=== PATIENT | female | born 1935 | race Caucasian/White ===

== ENCOUNTER 2022-05-05 10:28 | Inpatient (IN) ==
--- NOTE | 2022-05-05 12:08 | XRay Report ---
XR wrist LT min 3V routine, XR hand LT min 3V routine CLINICAL HISTORY: Fall TECHNIQUE: 4 views of the left wrist 3 views of left hand were obtained. Comparison: None available at the time of this dictation. FINDINGS: There is a slightly impacted fracture of the radial metaphysis. Degenerative changes are seen most pr ominently in the first carpometacarpal joint and distal interphalangeal joints. Soft tissue swelling is seen about the wrist. IMPRESSION: Placed fracture of the distal radial metaphysis without evidence of intra-articular extension. Degene rative changes compatible with osteoarthritis noted. ACT 112: Negative or not required by law. Electronically signed by: Ralph Bonner M.D. 05/05/2022 12:06 PM
--- NOTE | 2022-05-05 13:03 | CT Scan Report ---
CT SCAN OF THE BRAIN WITHOUT IV CONTRAST CLINICAL HISTORY: Fall. COMPARISON STUDY: CT of the brain dated 11/14/2019. TECHNIQUE: Unenhanced axial CT scan of the brain is performed from the vertex to the skull base. A do se lowering technique was utilized adhering to the principles of ALARA. CT DOSE: 729.78 mGycm FINDINGS: Brain parenchyma: There are several foci of subarachnoid hemorrhage. Subarachnoid hemorrhage is seen along the right posterior temporal sulci on axial high resolution image #54. There is also subarachno id hemorrhage along the right cerebellar hemisphere seen on axial image #45, and within the right yudith drigeminal plate cistern on image #63. There is age-related involutional change noting mild subcortic al and periventricular microangiopathic disease. There is no mass effect or evidence of acute territo rial ischemia by CT criteria. Mitchell-white matter differentiation is preserved. No extra-axial fluid co llection is seen. Ventricles, sulci, cisterns: Prominent secondary to involutional change. Intracranial vasculature: There is atherosclerotic calcification of the cavernous carotid arteries. Calvarium: The skeletal structures are osteopenic. No depressed calvarial fracture is identified. Sinuses and mastoids: A 9 mm retention cyst is noted in the left frontal sinus. The paranasal sinuses are otherwise clear. The mastoid air cells are well pneumatized. Orbits: The bony orbits are grossly intact. There are bilateral ocular lens implants. IMPRESSION: 1. There are small foci of acute subarachnoid hemorrhage as detailed above. 2. There is no mass effect or evidence of acute territorial ischemia by CT criteria. ACT 112: Negative or not required by law. Electronically signed by: Raymon Santizo M.D. 05/05/2022 1:02 PM
--- NOTE | 2022-05-05 13:08 | CT Scan Report ---
CT OF THE CERVICAL SPINE WITHOUT CONTRAST CLINICAL HISTORY: Fall. COMPARISON STUDY: Cervical spine CT November 14, 2019. TECHNIQUE: Helical axial images of the cervical spine were obtained without IV contrast. Sagittal a nd coronal reconstructions were viewed. Automated exposure control was utilized for the study. A do se lowering technique was utilized adhering to the principles of ALARA. FINDINGS: Small amount of suspected acute subarachnoid hemorrhage overlying the right cerebellar ani sphere is better depicted on the head CT. Alignment of the cervical spine is anatomic. Vertebral body heights are maintained. No acute cervical spine fracture or subluxation is present. There is no prev ertebral edema. Facet joints are intact. Moderate multilevel degenerative changes within the cervica l spine are present. IMPRESSION: 1. No acute cervical spine fracture or subluxation. 2. Small amount of suspected acute subarachnoid hemorrhage overlying the right cerebellar hemisphere, better depicted on the head CT. ACT 112: Negative or not required by law. Electronically signed by: Rusty Duenas M.D. 05/05/2022 1:07 PM
[2022-05-05 14:33] LABS: Appearance Urine Clear (Clear); Bacteria Urine Automated 1+ (Negative); Bilirubin Urine Negative (Negative); Blood Urine Negative (Negative); Cast Urine Automated 0 /lpf (0-5); Color Urine Yellow; Glucose Urine UA Negative (Negative); Ketones Urine Negative (Negative); Leukocyte Esterase Urine 1+ (Negative); Nitrite Urine Negative (Negative); Protein Urine Negative (Negative); RBC Urine Automated 0-4 /hpf (0-4); Specific Gravity Urine 1.006 (1.000-1.030); Urobilinogen Urine Negative (Negative); pH Urine 7.5 (4.5-7.5)
--- NOTE | 2022-05-05 15:28 | History & Physical Report ---
Date of Service May 05, 2022 Assessment & Plan (1) Recurrent falls: Plan: 87 y/o female with a complicated PMH including progressive primary aphasia, prior CVA, prior SAH, 4th nerve palsy, ASCVD, HTN, dyslipidemia, and hypothyroidism who presented to the ED from [facility] after a fall with resultant wrist pain. Work-up in the ED revealed small foci of acute SAH and distal left radius fracture so pt referred for admission. Discussed with pt/family possible neurosurgical evaluation for the SAH but they prefer to manage conservatively - pt's POLST completed in 2020 with pt's choice being limited interventions with a goal on quality of life and comfort. - Admit to med surg - requested family be able to stay with patient overnight due to her significant aphasia (family able to help pt to communicate her needs) - PT/OT consults - consider higher level of care such as SNF at discharge, even if temporary. Pt has been resistant to this previously - Fall precautions (2) Subarachnoid hemorrhage: Plan: Pt/family prefer to manage conservatively - repeat CT head in AM to document stability (3) Distal radius fracture, left: Plan: - Consult orthopedics for recommendations on management (4) Primary progressive aphasia: (5) ASCVD (arteriosclerotic cardiovascular disease): (6) Hypothyroid: (7) Dyslipidemia: (8) Essential hypertension: Plan I had an extensive conversation with the patient and her two daughters at the bedside regarding plan of care and goals moving forward. They agree that overall pt's condition has been worsening but also note that pt has refused many of the recommended therapies such as speech therapy, and refuses to use her walker, which has contributed to her frequent falls. They also have some concerns about the current care pt is receiving, as it is unclear how quickly they are responding to pt's falls and they have apparently failed to call the family with falls previously (pt notifies them). Will consult case management to assist with discharge planning, help identify potential services that pt would qualify for as outpatient to help her stay safe, promote quality of life. Consult palliative care to assist with goals of care discussion and help identify best discharge plan. Pt has declined speech therapy but will order appropriate diet while admitted, recommend aspiration precautions. Await PT/OT evals to help determine appropriate level of care at discharge. Pt seen and reviewed with attending physician, Dr. Fisher. Plan of care discussed and as outlined above. 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 History obtained from pt, her daughters at the bedside, and extensive review of her outpatient records. Pt has been at [facility] since shortly after her fall in 2020. She is supposed to be using a walker to help with ambulation but daughters report that she often does not use this, which has resulted in multiple falls. She follows with Dr. Lucero Agrawal for neurology, specifically the PPA. Her symptoms have been progressive. Pt also has ongoing issues with dysphagia - she did undergo speech therapy for a time but did not find it helpful so has since refused even with progressive symptoms and possible aspiration seen on imaging. Her daughters think that she is likely aspirating - may have coughing or choking episodes with meals. She does seem to do better with a mechanical soft/all food in bite size pieces type of diet. Appetite is good. Pt did see palliative care in Nov 2020 and MARY completed (copy on chart) - pt requests limited interventions with a focus on quality and comfort. It is unclear how compliant she has been with all of the prescribed medications but she is consistently taking her metoprolol and levothyroxine from what I can tell. Today's fall resulted in pt landing on her left side, specifically left hand. Main complaint of pain is in the left wrist, specifically with movement. Daughters note some abrasions on her left knee and elbow as well. Pt does not recall if she hit her head but does c/o headache when I saw her in the ED. Allergies Allergy/AdvReac Type Severity Reaction Status Date / Time BROWN Inhibitors Allergy Unknown ON [facility] 05/05/22 15:36 SIDNEY MED LIST Home Medications Medication Instructions Recorded Confirmed Type aspirin 81 mg chewable tablet 81 mg PO DAILY 11/14/19 05/05/22 History levothyroxine 88 mcg tablet 88 mcg PO DAILYBB 11/14/19 05/05/22 History acetaminophen 325 mg tablet 650 mg PO Q4H PRN PAIN/FEVER >100. 05/05/22 05/05/22 History (Tylenol) melatonin 3 mg tablet 3 mg PO HS PRN Insomnia 05/05/22 05/05/22 History metoprolol succinate 25 mg 37.5 mg PO BID 05/05/22 05/05/22 History tablet,extended release 24 hr pediatric multivitamin no.42 1 tab PO DAILY 05/05/22 05/05/22 History (Children's Multivitamin chewable tablet) propylene glycol 0.6 % eye drops 2 drp ophthalmic (eye) TID 05/05/22 05/05/22 History (Systane Balance) Past Med/Surg History Medical History ASCVD (arteriosclerotic cardiovascular disease) Degenerative cervical disc Dyslipidemia Essential hypertension History of lacunar cerebrovascular accident (CVA) History of ovarian cancer History of renal cell cancer Hypothyroid Paroxysmal atrial tachycardia Primary progressive aphasia Vitamin D deficiency Surgical History Hx of appendectomy Hx of removal of ovary S/P partial hysterectomy Family History Other Family history non-contributory Social History (Updated 05/05/22 @ 16:42 by Josefina Johnson PA-C) Smoking Status: Never smoker Preferred Language: Irish Current Living Situation: Personal Care Facility Current Living Situation Comment: [facility] Feels Safe at Home: Yes Review of Systems Review of Systems: Limited due to PPA - please see HPI Physical Exam Constitutional: + frail appearing; no acute distress Eyes: wearing glasses with patch over right eye - when removed, pupils are equal and reactive Neck: trachea midline Respiratory: no respiratory distress and no labored breathing Auscultation: lungs clear to auscultation bilaterally; no rales, no rhonchi and no wheezes Cardiovascular: Rate/Rhythm: regular rate and regular rhythm Vessels: dorsalis pedis pulses present and radial pulses present Extremities: no pedal edema Gastrointestinal (Abdomen): Inspection/Auscultation: normal bowel sounds; abdomen not distended Percussion/Palpation: abdomen soft Musculoskeletal: left wrist with some ecchymosis, extends to hand/fingers, but minimal swelling - 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 but some pain with this movement, pain with supination and flexion Skin: small abrasions left elbow and left knee Neurologic: moves all extremities and awake Speech / Cognition: + expressive aphasia Results & Data Results & Data ([facility]) Vital Signs (Past 12 Hours) Vital Signs Temp Pulse Pulse Resp BP BP Pulse Ox 05/05/22 14:35 73 05/05/22 13:57 78 16 155/89 H 94 05/05/22 13:00 76 24 97 05/05/22 12:30 68 18 05/05/22 12:00 61 18 96 05/05/22 11:30 71 18 05/05/22 11:00 76 21 97 05/05/22 10:39 75 20 97 05/05/22 10:42 74 05/05/22 10:36 36.5 C 77 16 135/90 97 O2 Del Method 05/05/22 14:35 05/05/22 13:57 05/05/22 13:00 Room Air 05/05/22 12:30 05/05/22 12:00 Room Air 05/05/22 11:30 05/05/22 11:00 Room Air 05/05/22 10:39 Room Air 05/05/22 10:42 05/05/22 10:36 Room Air Laboratory Results Laboratory Results - last 24 hr 05/05/22 13:45 Urine Color Yellow Urine Appearance Clear Urine pH 7.5 Ur Specific Batson 1.006 Urine Protein Negative Urine Glucose (UA) Negative Urine Ketones Negative Urine Blood Negative Urine Nitrite Negative Urine Bilirubin Negative Urine Urobilinogen Negative Ur Leukocyte Esterase 1+ H Urine WBC (Auto) 5-10 H Urine RBC (Auto) 0-4 U Hyaline Cast (Auto) 0 U Epithel Cells (Auto) 10-20 H Urine Bacteria (Auto) 1+ H Diagnostic Findings Left Wrist/Left Hand X-ray 05/05/22 - IMPRESSION: Placed fracture of the distal radial metaphysis without evidence of intra-articular extension. Degenerative changes compatible with osteoarthritis noted. CT Head 05/05/22 - IMPRESSION: 1. There are small foci of acute subarachnoid hemorrhage as detailed above. 2. There is no mass effect or evidence of acute territorial ischemia by CT criteria. CT Cervical Spine 05/05/22 - IMPRESSION: 1. No acute cervical spine fracture or subluxation. 2. Small amount of suspected acute subarachnoid hemorrhage overlying the right cerebellar hemisphere, better depicted on the head CT. Code Status & VTE Plan VTE Prophylaxis Plan VTE Prophylaxis will be ordered: Yes Supervising Physician Co-Signing Physician Notes 87-year-old lady with progressive primary aphasia, recurrent falls, CVA, SAH, dysphagia and multiple neurological problems was presented 05/05 to ED from [facility] after fall. Patient's daughter is at bedside. Patient is oriented and alert has slow/garbled speech. Patient reports pain under control at her left wrist site where fracture is noted in imaging. Patient has some bruises on the left confucianist region/left shoulder/left knee. Pelvic compression negative for tenderness. Patient and patient's daughter confirms that patient does not want any invasive intervention. CT head reveals small foci of acute subarachnoid hemorrhage. Other imagings reviewed. Orthopedic consult, pain management, palliative consult. Pt reports pain under control. On examination: GENERAL: Alert and oriented x3. NAD, on RA. slow garbled speech HEENT: No pallor, no icterus. Pupils equal, round and reactive to light. Oral mucosa moist. NECK: No JVD, no neck masses. HEART: S1 and S2 heard. Regular rate and rhythm. No murmur, no gallop. RESPIRATORY SYSTEM: Normal AP diameter. No accessory muscle use. No wheezing, no crackles. ABDOMEN: Soft, bowel sounds present, nontender, no distention. CENTRAL NERVOUS SYSTEM: No facial droop. aphasia. Obeys simple commands. Moves extremities. EXTREMITIES: No edema, no erythema seen. Left wrist tender/swollen. Fall exam: -ve pelvic compression test, bruise noted left confucianist/left shoulder/left knee. Left wrist swollen/tender rom. I have seen and examined the patient and have discussed the case with the provider above. I agree with the assessment and plan as stated.
--- NOTE | 2022-05-05 17:10 | Electrocardiogram Report ---
Test Reason : Blood Pressure : / mmHG Vent. Rate : 069 BPM Atrial Rate : 069 BPM P-R Int : 172 ms QRS Dur : 082 ms QT Int : 410 ms P-R-T Axes : 082 -08 049 degrees QTc Int : 439 ms Poor data quality, interpretation may be adversely affected Sinus rhythm with frequent Premature ventricular complexes and Premature atrial complexes Fusion beats Borderline ECG When compared with ECG of 02-MAY-2010 00:43, Premature ventricular complexes are now Present Premature atrial complexes are now Present ST now depressed in Inferior leads Confirmed by Emile Salamanca ([id number]) on 05/05/2022 5:10:27 PM Referred By: [facility] Confirmed By:Arturo Salamanca
[2022-05-05] MEDS: METOPROLOL SUCC 25MG EXT REL TAB PO SCH (21:45)
[2022-05-06] MEDS: ACETAMINOPHEN 325 MG TAB PO PRN ×3 (01:08→16:30)
[2022-05-06] MEDS: LEVOTHYROXINE SODIUM 88 MCG TABLET PO SCH (06:29)
--- NOTE | 2022-05-06 06:43 | Emergency Department Note ---
Impression & Plan Subarachnoid hemorrhage, Recurrent falls, Distal radius fracture, left ED Provider Note CHIEF COMPLAINT: fall HISTORY OF PRESENT ILLNESS: This 87 yo female patient presents to the emergency department with c/o an unwitnessed fall last night. Pt told her daughter she was feeling dizzy when the event occurred. 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 Patient's daughter states she received a call from the patient stating that she needed an ambulance. Patient's daughter drove to the personal care facility where she lives in an independent apartment. Patient was noted to have ice on her left wrist, as she was c/o pain. Patient's daughter states she did not receive a call from the facility staff. REVIEW OF SYSTEMS: A review of systems was performed with positives and pertinent negatives listed in the history of present illness. 10 systems were reviewed and are otherwise negative. ALLERGIES: see below MEDICATIONS: see below PMH: see below SOCIAL HISTORY: see below DDx: Fracture, dislocation, contusion, intra-abdominal, pneumothorax, intrathoracic, intracranial, neurologic, compartment syndrome, rhabdomyolysis, as well as other pathologies. PHYSICAL EXAM: Vital signs reviewed. General: Chronically ill-appearing 87 yo female, in no significant distress. HEENT: No scleral icterus, PERRLA, neck supple. Atraumatic. Cardiovascular: Regular rate and rhythm, no extra sounds. Pulmonary: Clear to auscultation bilaterally, normal work of breathing. Abdomen: Soft, nontender, nondistended, positive bowel sounds. Musculoskeletal: Atraumatic, no peripheral edema. Left wrist with mild swelling and discomfort to palpation, no significant deformity. Bruising noted to the fingers. Moves all extremities equally. Neurologic: Patient awake alert and oriented x 3, significant expressive aphasia with slow and deliberate speech. Cranial nerves II through XII are grossly intact. Skin: Warm, dry, no rash EMERGENCY DEPARTMENT COURSE/MDM: This patient was evaluated and appeared to be in no significant distress. IV access was obtained and laboratory work was drawn. Patient was placed on a house servant and external medical records were reviewed. CT imaging of the head was performed and reveals a small amount of subarachnoid bleeding. Left wrist x-ray reveals an impacted fracture of the distal radius. CT scan of the C-spine is negative for acute fracture as well as the left hand x-ray. I did explain the findings to the patient and family. Patient has mentioned not wanting to live anymore in the past to her family due to her severe aphasia. They do not want any heroic measures/neurosurgery and did not want to be transferred to a tertiary care facility as they have done this several times in the past for similar issues. Patient will require 24-hour head CT to evaluate the progression of the intracranial hemorrhage. Nursing staff was advised to place a splint on the left wrist. Patient's case was discussed with the hospitalist service for further evaluation and management. MONITORING: An order for cardiac monitoring was placed and the patient is noted to be in a sinus rhythm with frequent ectopy at 75 beats per minute. RADIOLOGY: CT scan of the head to my interpretation reveals a small amount of acute blood/subarachnoid at the right temporal lobe, otherwise defer to radiology CT imaging of the C-spine per radiology reveals no evidence of acute fracture. X-ray of the left wrist reveals an impacted fracture of the distal radius without significant angulation. X-ray of the left hand to my interpretation reveals no evidence of acute fracture. EKG: To my interpretation reveals a sinus rhythm with frequent PVC and PAC at [address] segments, QTc of 439. DISPOSITION: Admission Past Med/Surg History Medical History Advanced care planning/counseling discussion ASCVD (arteriosclerotic cardiovascular disease) Degenerative cervical disc Dyslipidemia Essential hypertension History of lacunar cerebrovascular accident (CVA) History of ovarian cancer History of renal cell cancer Hypothyroid Palliative care encounter Paroxysmal atrial tachycardia Primary progressive aphasia Vitamin D deficiency Surgical History Hx of appendectomy Hx of removal of ovary S/P partial hysterectomy Family History Other Family history non-contributory Social History Smoking Status: Former smoker Second Hand Exposure: No; Hx Alcohol Use: Yes Alcohol type: hard liquor Hx Substance Use: No Preferred Language: Croatian Communication Ability: Impaired [place] Machine Operator Required: No Beliefs That Will Affect Care: None Current Living Situation: Personal Care Facility Current Living Situation Comment: [facility] Feels Safe at Home: Yes Assistive Devices: Walker Allergies Allergies Allergy/AdvReac Type Severity Reaction Status Date / Time BROWN Inhibitors Allergy Unknown ON WINDY Verified 05/05/22 15:36 ABELL MED LIST Home Meds Home Medications Medication Instructions Recorded Confirmed aspirin 81 mg chewable tablet 81 mg PO DAILY 11/14/19 05/05/22 levothyroxine 88 mcg tablet 88 mcg PO DAILYBB 11/14/19 05/05/22 acetaminophen 325 mg tablet 650 mg PO Q4H PRN PAIN/FEVER >100. 05/05/22 05/05/22 (Tylenol) melatonin 3 mg tablet 3 mg PO HS PRN Insomnia 05/05/22 05/05/22 metoprolol succinate 25 mg 37.5 mg PO BID 05/05/22 05/05/22 tablet,extended release 24 hr pediatric multivitamin no.42 1 tab PO DAILY 05/05/22 05/05/22 (Children's Multivitamin chewable tablet) propylene glycol 0.6 % eye drops 2 drp ophthalmic (eye) TID 05/05/22 05/05/22 (Systane Balance) Previous Rx's Medication Instructions Recorded cefdinir 300 mg capsule 300 mg PO BID 3 days #6 caps 05/08/22 Results & Data (ED) Vital Signs Vital Signs - 24 hr 05/05/22 10:36 05/05/22 10:42 05/05/22 10:39 Temperature 36.5 C Temperature Source Oral Pulse Rate 77 74 75 Pulse Rate [Apical] Respiratory Rate 16 20 Respiratory Depth Normal Blood Pressure 135/90 Blood Pressure [Left Arm] Blood Pressure Mean 105 Blood Pressure Mean [Left Arm] Blood Pressure Position Lying Pulse Oximetry 97 97 Oxygen Delivery Method Room Air Room Air Sepsis Recent Fever Within 48 Hours No Sepsis New/Unexplained Change in Mental Status No Sepsis Action Taken by Nursing No Action Required 05/05/22 11:00 05/05/22 11:30 05/05/22 12:00 Temperature Temperature Source Pulse Rate 76 71 61 Pulse Rate [Apical] Respiratory Rate 21 18 18 Respiratory Depth Blood Pressure Blood Pressure [Left Arm] Blood Pressure Mean Blood Pressure Mean [Left Arm] Blood Pressure Position Pulse Oximetry 97 96 Oxygen Delivery Method Room Air Room Air Sepsis Recent Fever Within 48 Hours Sepsis New/Unexplained Change in Mental Status Sepsis Action Taken by Nursing 05/05/22 12:30 05/05/22 13:00 05/05/22 13:57 Temperature Temperature Source Pulse Rate 68 76 Pulse Rate [Apical] 78 Respiratory Rate 18 24 16 Respiratory Depth Blood Pressure Blood Pressure [Left Arm] 155/89 H Blood Pressure Mean Blood Pressure Mean [Left Arm] 111 Blood Pressure Position Pulse Oximetry 97 94 Oxygen Delivery Method Room Air Sepsis Recent Fever Within 48 Hours Sepsis New/Unexplained Change in Mental Status Sepsis Action Taken by Nursing 05/05/22 14:35 Temperature Temperature Source Pulse Rate 73 Pulse Rate [Apical] Respiratory Rate Respiratory Depth Blood Pressure Blood Pressure [Left Arm] Blood Pressure Mean Blood Pressure Mean [Left Arm] Blood Pressure Position Pulse Oximetry Oxygen Delivery Method Sepsis Recent Fever Within 48 Hours Sepsis New/Unexplained Change in Mental Status Sepsis Action Taken by [facility] Medications Current Medication List: was personally reviewed by me Laboratory Data Attestation: I reviewed the patient's lab results. 05/07/22 07:44 05/07/22 07:44 Lab Results 05/05/22 Range/Units 13:45 Urine Color Yellow Urine Appearance Clear (Clear) Urine pH 7.5 (4.5-7.5) Ur Specific [place] 1.006 (1.000-1.030) Urine Protein Negative (Negative) Urine Glucose (UA) Negative (Negative) Urine Ketones Negative (Negative) Urine Blood Negative (Negative) Urine Nitrite Negative (Negative) Urine Bilirubin Negative (Negative) Urine Urobilinogen Negative (Negative) Ur Leukocyte Esterase 1+ H (Negative) Urine WBC (Auto) 5-10 H (0-5) /hpf Urine RBC (Auto) 0-4 (0-4) /hpf U Hyaline Cast (Auto) 0 (0-5) /lpf U Epithel Cells (Auto) 10-20 H (0-5) /lpf Urine Bacteria (Auto) 1+ H (Negative) Administered Medications Discontinued Medications Acetaminophen (Acetaminophen 325 Mg Tab) 650 mg PO Q4H PRN PRN Reason: pain/fever Stop: 06/04/22 20:16 Last Admin: 05/08/22 07:23 Dose: 650 mg Documented By: Admin: 05/07/22 11:13 Dose: 650 mg Documented By: Admin: 05/06/22 16:30 Dose: 650 mg Documented By: Admin: 05/06/22 11:48 Dose: 650 mg Documented By: Admin: 05/06/22 01:08 Dose: 650 mg Documented By: LANDY Ceftriaxone Sodium 1,000 mg/ (Dextrose) 50 mls @ 100 mls/hr IV Q24H [facility]; Protocol Stop: 05/16/22 12:44 Last Infusion: 05/08/22 12:07 Dose: 0 mls/hr Documented By: Admin: 05/08/22 11:37 Dose: 100 mls/hr Documented By: Infusion: 05/07/22 14:00 Dose: 0 mls/hr Documented By: Admin: 05/07/22 13:30 Dose: 100 mls/hr Documented By: Infusion: 05/06/22 14:59 Dose: 0 mls/hr Documented By: Admin: 05/06/22 14:29 Dose: 100 mls/hr Documented By: LINO Levothyroxine Sodium (Levothyroxine Sodium 88 Mcg Tablet) 88 mcg PO DAILYBB [facility] Stop: 06/05/22 06:29 Last Admin: 05/08/22 05:57 Dose: 88 mcg Documented By: Admin: 05/07/22 06:31 Dose: 88 mcg Documented By: Admin: 05/06/22 06:29 Dose: 88 mcg Documented By: ELOY Melatonin (Melatonin 3 Mg Tab) 3 mg PO HS PRN PRN Reason: Sleep Stop: 06/05/22 19:27 Last Admin: 05/06/22 20:04 Dose: 3 mg Documented By: ELOY Metoprolol Succinate (Metoprolol Succ 25mg Ext Rel Tab) 37.5 mg PO BID [facility] Stop: 06/04/22 20:59 Last Admin: 05/08/22 08:34 Dose: 37.5 mg Documented By: Admin: 05/07/22 21:37 Dose: 37.5 mg Documented By: Admin: 05/07/22 08:27 Dose: 37.5 mg Documented By: Admin: 05/06/22 20:05 Dose: 37.5 mg Documented By: Admin: 05/06/22 08:52 Dose: 37.5 mg Documented By: Admin: 05/05/22 21:45 Dose: 37.5 mg Documented By: ELOY Miscellaneous (Order Awaiting Action: (Propylene Glycol [Systane Balance] 0.6 % Drops)) 1 each N/A QS [facility] Stop: 06/05/22 00:00 Last Admin: 05/08/22 07:15 Dose: Not Given Documented By: Admin: 05/08/22 01:03 Dose: Not Given Documented By: Admin: 05/07/22 15:07 Dose: Not Given Documented By: Admin: 05/07/22 07:33 Dose: Not Given Documented By: Admin: 05/06/22 22:37 Dose: Not Given Documented By: Admin: 05/06/22 15:28 Dose: Not Given Documented By: Admin: 05/06/22 08:41 Dose: Not Given Documented By: Admin: 05/06/22 01:32 Dose: Not Given Documented By: SMP Discharge Plan Visit Data Chief Complaint: Fall ED Provider: Reema Samayoa Discharge Problem: Subarachnoid hemorrhage, Recurrent falls, Distal radius fracture, left Patient Disposition: Admitted As Inpatient Discharge Instructions Interventions: ED Discharge Assessment Last Done: 05/05/22 20:03
--- NOTE | 2022-05-06 07:17 | CT Scan Report ---
CT OF THE HEAD WITHOUT CONTRAST CLINICAL HISTORY: f/u [facility] for stability COMPARISON STUDY: Head CT May 05, 2022. CT DOSE: 626.55 mGy.cm TECHNIQUE: Helical axial images of the head were obtained without IV contrast. Automated exposure con trol was utilized for the study. A dose lowering technique was utilized adhering to the principles o f ALARA. FINDINGS: A few foci of trace acute subarachnoid hemorrhage are noted, including foci within the righ t aspect of the quadrigeminal plate cistern and overlying the right cerebellar hemisphere. There is a possible additional focus overlying the right occipital lobe. There has been no significant change s everette prior exam. Ventricular system is normal. Basal cisterns are patent. There are no findings to fuller ggest acute dural sinus thrombosis or acute territorial infarct. There is no acute calvarial fracture . IMPRESSION: No significant change in a few foci of trace acute subarachnoid hemorrhage. ACT 112: Negative or not required by law. Electronically signed by: Rusty Duenas M.D. 05/06/2022 7:15 AM
[2022-05-06] MEDS: METOPROLOL SUCC 25MG EXT REL TAB PO SCH ×2 (08:52→20:05)
--- NOTE | 2022-05-06 09:19 | Palliative Care Consultation ---
Date of Consultation May 06, 2022 Assessment & Plan (1) Palliative care encounter: Met with pt/family. Provided overview of Palliative Medicine, a subspecialty that provides specialized medical care for people living with a serious illness by offering a focus on quality of life. Palliative Medicine is often conflated with hospice: I advised patient/family that Palliative and hospice can be partners but we are not the same. It is important to understand the difference so that we may be informed, and not afraid. Palliative Medicine works to improve QOL through reduction of symptom burden/more control over their illness, for both the patient and family. Palliative medicine clinicians are board certified, specially-trained and another member of the patient's medical care team. We often provide an extra layer of support because our care is based on the needs of the patient, not the prognosis; as such, it's appropriate at any age/advancing stage of a serious illness and can be provided along with curative treatment. Palliative Medicine clinicians are also trained in advanced communication methodologies, to facilitate complex discussions about advanced illness planning, which are needed to help assure that the treatment choices match the patient's goals, aka delivering Goal Concordant care. Finally, we discussed that hospice is a visiting nurse service that focuses on care delivered at the very end of life for patients with terminal illness, with life expectancy less than 6 month. (2) Advanced care planning/counseling discussion: A 60-minute [id number] goals of care and advance care planning discussion was held with patient, her daughters x2 at bedside. We reviewed that all chronic/progressive disease has a declining trajectory over time where facets of patient self-identity and independence are lost. Every acute event leads to a further decline, resulting- many times, in a new baseline. Advised that the greatest priority is to determine what matters most to pt, then family and to develop a plan of care that is aligned with those priorities. Daughters shared patient has increasingly been verbalizing "I want to ." She has steadfastly and consistently refused advanced therapies and interventions. She has declined further speech therapy physical therapy evaluations. They note that with her disease complex, she is beyond the point at which speech therapy would offer any substantial help due to the progression of her medical illness. They note that she has an exceptionally rare and complex illness, primary progressive aphasia. When I questioned patient about her goals and priorities/preferences at this point, she affirmed that she wants more of a focus on quality of life. She wants to return to her facility and would prefer to stay in her assisted living or personal care space versus having to go to the [facility] facility. We discussed the addition of hospice - I have provided education about the hospice benefit. Hospice is an interdisciplinary program offered by nurses, nurses aides, social workers, chaplains and a medical records technician for patients with a terminal condition and a life expectancy of less than 6 months. The goal would be to improve the quality of life of the patient in their home setting (home, halfway, inpatient hospice setting) by providing symptoms management, psychosocial and spiritual support. However, they cannot offer 24 hours care and if the family is unable to provide that care, they will have to consider personal care with out of pocket cost vs. halfway placement. Patient and daughters are interested in learning more about the options for hospice at [facility]. I have updated care management/Lyubov. She will follow-up with the family later today. I specifically advised family that sometimes nursing homes may have partnerships with [facility] for they may asked the family to choose the hospice agency they prefer. Daughter shared extensive list of concerns with regards to patient's care and overall management at [facility]. They are frustrated by the lack of adequate staffing. As well as by the fact that they do not adhere to the parameters for communication as requested by family i.e. to notify them when patient has a fall at any time. They state with this most recent event, patient fell at 2 AM and they were not notified. Patient then called her daughter at 7 AM and said "fall, hurt, ambulance." Daughter then called the nursing desk to request assistance for her mother and was told by the nurse on duty that she had just arrived and got report and would need to go see patient before any updates. She would then subsequently was sent to the hospital but family was not notified until after the fact nor were they called on the initial assessment was done at the bedside. They are also is frustrated by what they know to be limitations and caregiver staff at the halfway level. They note that patient had been living at her daughter's house for some time but her care needs became more complex and daughter could no longer manage her. They did seek assistance from the area agency who were able to approve patient for nearly 24 hours of care however, they were unable to obtain the necessary caregivers due [place] pandemic related [place]. Family expresses several frustrations over the lack of adequate resources and where they feel there are gaps in care that have led to a lesser than ideal quality of care delivery. I provided empathy and reassurance for all of them and encouraged him to continue to remain the strong advocate to engage in his mother's care as they are at this moment. Family and patient would like to return to [facility] with the addition of hospice. They are unsure if she were able to return to her personal alf versus required the [facility] unit, care management has been notified, and will further update the family once they know more information. Family tells me that they were advised patient will be discharged today after her orthopedic brace is applied. I advised them I am unsure of the timing of discharge but that I would not be surprised if possibly this was held till tomorrow while we make arrangements to discharge her back with hospice. I provided my contact information to the family in case additional information is needed with regards to a hospice plan of care. (3) Primary progressive aphasia: (4) Distal radius fracture, left: (5) Subarachnoid hemorrhage: (6) Recurrent falls: (7) ASCVD (arteriosclerotic cardiovascular disease): Plan An extensive family meeting and goals of care discussion was held to identify and clarify the patient's wishes for advance care. They would like a discharge back to the facility with the addition of hospice. Care management has been notified to assist with this process. Timing of discharge to be determined. They do not want to return to the hospital. They understand that the focus will shift to be more about quality and comfort at this junction. Patient has expressed a desire and consistent wish to stop coming back to the hospital pursuing aggressive interventions. She has consistently and steadfastly declined offers and interventions in the past for things such as physical therapy, rehab, speech etc. They do not want to restrict her diet further. They want her to eat and drink as she tolerates for enjoyment and for pleasure. They understand that there is no indication to do further labs, testing, imaging etc. as the focus is shifting to be more about her comfort and quality of life. I have updated nursing, primary team and care management. Palliative medicine was consulted to assist with clarifying the goals of care. This has been done and documented above. At this time we will sign off but remain available for reengagement of reassessment if necessary. I provided the family with my contact information should additional questions or concerns arise. Thank you for this consult. Katey Wallace DNP Clinical Director, Palliative Medicine History of Present Illness Reason for Consultation: On 05/05/22 @ 20:17 Josefina Johnson Wrote To Ana Lemus falls, progressive decline, SAH - goals of care Attending Physician: Suresh Fisher MD History of Present Illness presented to the ED from [facility] after a fall with resultant wrist pain. Work-up in the ED revealed small foci of acute SAH and distal left radius fracture so pt referred for admission. Discussed with pt/family possible neurosurgical evaluation for the SAH but they prefer to manage conservatively - pt's POLST completed in 2020 with pt's choice being limited interventions with a goal on quality of life and comfort. Her 2 daughters are actively involved in her care and would like more discussions re GOC and options to improve symptom mgt. Per chart review: "Pt also has ongoing issues with dysphagia - she did undergo speech therapy for a time but did not find it helpful so has since refused even with progressive symptoms and possible aspiration seen on imaging. Her daughters think that she is likely aspirating - may have coughing or choking episodes with meals. She does seem to do better with a mechanical soft/all food in bite size pieces type of diet. Appetite is good. 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 Allergies Allergy/AdvReac Type Severity Reaction Status Date / Time BROWN Inhibitors Allergy Unknown ON [facility] 05/05/22 15:36 [place] MED LIST Home Medications Medication Instructions Recorded Confirmed Type aspirin 81 mg chewable tablet 81 mg PO DAILY 11/14/19 05/05/22 History levothyroxine 88 mcg tablet 88 mcg PO DAILYBB 11/14/19 05/05/22 History acetaminophen 325 mg tablet 650 mg PO Q4H PRN PAIN/FEVER >100. 05/05/22 05/05/22 History (Tylenol) melatonin 3 mg tablet 3 mg PO HS PRN Insomnia 05/05/22 05/05/22 History metoprolol succinate 25 mg 37.5 mg PO BID 05/05/22 05/05/22 History tablet,extended release 24 hr pediatric multivitamin no.42 1 tab PO DAILY 05/05/22 05/05/22 History (Children's Multivitamin chewable tablet) propylene glycol 0.6 % eye drops 2 drp ophthalmic (eye) TID 05/05/22 05/05/22 History (Systane Balance) Patient History Medical History (Updated 05/06/22 @ 09:22 by Katey Wallace DNP) Advanced care planning/counseling discussion ASCVD (arteriosclerotic cardiovascular disease) Degenerative cervical disc Dyslipidemia Essential hypertension History of lacunar cerebrovascular accident (CVA) History of ovarian cancer History of renal cell cancer Hypothyroid Palliative care encounter Paroxysmal atrial tachycardia Primary progressive aphasia Vitamin D deficiency Surgical History Hx of appendectomy Hx of removal of ovary S/P partial hysterectomy Family History Other Family history non-contributory Social History Smoking Status: Former smoker Second Hand Exposure: No; Do You Dip or Chew Tobacco: No; Tobacco Cessation Education Requested by Patient: No Hx Alcohol Use: Yes Alcohol type: hard liquor Hx Substance Use: No Preferred Language: Latvian Communication Ability: Impaired Electrical High Tension Tester Required: No Beliefs That Will Affect Care: None Current Living Situation: Personal Care Facility [facility] Other Information That Helps Us Care for You: No Feels Safe at Home: Yes Safety Concerns: Feels Safe At This Time Assistive Devices: Walker Review of Systems Review of Systems: All systems reviewed & are unremarkable except as noted in HPI & below, All systems reviewed & are unremarkable except as noted in Subjective and Other (progressive aphasia, pt daughters provided hx as noted in HPI) Physical Exam Constitutional: Chronically ill-appearing Eyes: + irregular pupils ENMT: + Dysarthria, fair dentition, mucosa moist. Neck: Supple, no stridor, no thyromegaly Respiratory: Lateral faint rhonchi, no wheeze, no basilar crackles. Normal effort. No use of accessory muscles. Cardiovascular: RRR, no murmur, no edema Gastrointestinal (Abdomen): Softly distended, bowel sounds positive throughout, nontender to palpation. Musculoskeletal: Generalized weakness, arthritic changes to upper and lower extremities, left wrist and hand with bruising noted. Skin: Pale, warm to touch. Neurologic: Patient is alert to self. She will answer simple questions appropriately most of the time. At times she is distracted or will fall asleep easily. Her speech is severely dysarthric. She has some word location issues. Her daughters are present and assist with translating what she is saying. Results & Data ([facility]) Vital Signs (Past 12 Hours) Vital Signs Temp Pulse Resp BP Pulse Ox O2 Del Method 05/06/22 07:40 36.3 C L 57 L 18 130/76 95 Room Air Laboratory Results Data reviewed Diagnostic Findings Data reviewed PG Care Time/CCT Total # of Minutes Spent Total Time Spent: 120 Total Time Spent with Patient: Total time spent is greater than 50% in coordination of care (as documented) at patient's floor/unit and/or counseling patient: 15 minutes spent in chart review 15 minutes spent in patient assessment 60 additional minutes spent in direct [id number] advance care planning, goals of care discussion with patient and her daughters x2 at the bedside 15 minutes spent reviewing the plan of care, coordination of care, and hospice plan of care trajectory with family and patient 15 minutes spent updating primary team, nursing and case management. Case management will follow-up with the family with regards to disposition planning. A total of 120 minutes was spent on this complex case today. Prolonged Care Time Prolonged Care Time: Yes Advanced Care Planning 46794 Advanced Care Planning 30 Min 57132 Advanced Care Planning Additional 30 Min Coding Level of Care Code New Pt INP/OBS CONSULT LVL 5, 80 MIN Patient Type New History Comprehensive Exam Comprehensive Medical Decision Making High Complexity Diagnoses Palliative care encounter Z51.5 Advanced care planning/counseling discussion Z71.89 Primary progressive aphasia G31.01; F02.80 Distal radius fracture, left S52.502A Subarachnoid hemorrhage I60.9 Recurrent falls R29.6 ASCVD (arteriosclerotic cardiovascular disease) I25.10 Additional Codes Prolonged Care Time - Prolonged Care Time: Yes ([id number]) Advanced Care Planning - 53555 Advanced Care Planning 30 Min: 18092 Advanced Care Planning 30 Min ([id number]) Advanced Care Planning - 81623 Advanced Care Planning Additional 30 Min: 29007 Advanced Care Planning Additional 30 Min ([id number])
--- NOTE | 2022-05-06 09:33 | Orthopedic Consultation ---
Date of Consultation May 06, 2022 Assessment & Plan (1) Distal radius fracture, left: Discussed findings with the patient and daughter and recommended conservative treatment with either cast, eXos fracture brace or cock-up wrist splint and they elected a cock-up wrist splint. Continue RICE. Will also obtain a platform for her walker on the left so she can be weight bearing through the forearm. PT/OT. Follow-up in the office in 2 weeks for x-rays left wrist. As for the left knee explained the is stable and has good ROM with effusion and she can be WBAT. Thank you for the allowing me to participate in Martine Mcarthur's care. Present on Admission?: Yes History of Present Illness Reason for Consultation: Left Wrist fracture Requesting Physician: Danilo Cedillo MD Attending Physician: Suresh Fisher MD History of Present Illness Patient is a pleasant 87-year-old female with multiple medical problems including: progressive primary aphasia, recurrent falls, CVA, SAH, dysphagia and multiple neurological problems presented 05/[address] [facility] after an unwitnessed fall and was admitted yesterday to hospitalist service. Patient's daughter is at bedside. Patient is complaining of left wrist pain. Daughter notes she has bruising left knee, but was able to walk to bathroom with walker but the splint made it difficult. Allergies Allergy/AdvReac Type Severity Reaction Status Date / Time BROWN Inhibitors Allergy Unknown ON [facility] 05/05/22 15:36 LONG BOTTOM MED LIST Home Medications Medication Instructions Recorded Confirmed Type aspirin 81 mg chewable tablet 81 mg PO DAILY 11/14/19 05/05/22 History levothyroxine 88 mcg tablet 88 mcg PO DAILYBB 11/14/19 05/05/22 History acetaminophen 325 mg tablet 650 mg PO Q4H PRN PAIN/FEVER >100. 05/05/22 05/05/22 History (Tylenol) melatonin 3 mg tablet 3 mg PO HS PRN Insomnia 05/05/22 05/05/22 History metoprolol succinate 25 mg 37.5 mg PO BID 05/05/22 05/05/22 History tablet,extended release 24 hr pediatric multivitamin no.42 1 tab PO DAILY 05/05/22 05/05/22 History (Children's Multivitamin chewable tablet) propylene glycol 0.6 % eye drops 2 drp ophthalmic (eye) TID 05/05/22 05/05/22 History (Systane Balance) Patient History Medical History ASCVD (arteriosclerotic cardiovascular disease) Degenerative cervical disc Dyslipidemia Essential hypertension History of lacunar cerebrovascular accident (CVA) History of ovarian cancer History of renal cell cancer Hypothyroid Paroxysmal atrial tachycardia Primary progressive aphasia Vitamin D deficiency Surgical History Hx of appendectomy Hx of removal of ovary S/P partial hysterectomy Family History Other Family history non-contributory Social History Smoking Status: Former smoker Second Hand Exposure: No; Do You Dip or Chew Tobacco: No; Tobacco Cessation Education Requested by Patient: No Hx Alcohol Use: Yes Alcohol type: hard liquor Hx Substance Use: No Preferred Language: Malay Communication Ability: Impaired 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 LUE: 2+ radial pulse. Sensation to light touch intact distally. Able to flex and extend digits, has difficulty following instructions. + Bruising of the middle, ring and small fingers w/o tenderness to palpation or step-offs. - Swelling of the wrist. + TTP distal radius and ulna as well as 1st CMC joint; NO ttp anatomic snuff box nor volarly about the scaphoid. Good ROM of the elbow, some radiation of pain with forearm rotation to elbow. LLE: 2+ DP pulse. Sensation to light touch intact distally. Able to flex and extend toes, has difficulty following instructions. + Bruising of lateral to patella. - effusion. ROM knee and hip was good w/o pain. Knee ligament exam was stable. Results & Data ([facility]) Vital Signs (Past 12 Hours) Vital Signs Temp Pulse Resp BP Pulse Ox O2 Del Method 05/06/22 07:40 36.3 C L 57 L 18 130/76 95 Room Air Laboratory Results Laboratory Results Urine Color Yellow 05/05/22 13:45 Urine Appearance Clear (Clear) 05/05/22 13:45 Urine pH 7.5 (4.5-7.5) 05/05/22 13:45 Ur Specific Ava 1.006 (1.000-1.030) 05/05/22 13:45 Urine Protein Negative (Negative) 05/05/22 13:45 Urine Glucose (UA) Negative (Negative) 05/05/22 13:45 Urine Ketones Negative (Negative) 05/05/22 13:45 Urine Blood Negative (Negative) 05/05/22 13:45 Urine Nitrite Negative (Negative) 05/05/22 13:45 Urine Bilirubin Negative (Negative) 05/05/22 13:45 Urine Urobilinogen Negative (Negative) 05/05/22 13:45 Ur Leukocyte Esterase 1+ (Negative) H 05/05/22 13:45 Urine WBC (Auto) 5-10 /hpf (0-5) H 05/05/22 13:45 Urine RBC (Auto) 0-4 /hpf (0-4) 05/05/22 13:45 U Hyaline Cast (Auto) 0 /lpf (0-5) 05/05/22 13:45 U Epithel Cells (Auto) 10-20 /lpf (0-5) H 05/05/22 13:45 Urine Bacteria (Auto) 1+ (Negative) H 05/05/22 13:45 Nasal Screen MRSA (PCR) Negative (Negative) 05/06/22 04:48 SARS-CoV-2, RNA, NAAT NEGATIVE (NEGATIVE) 05/05/22 15:[address] 05/05/22 11:21 CT OF THE CERVICAL SPINE WITHOUT CONTRAST CLINICAL HISTORY: Fall. COMPARISON STUDY: Cervical spine CT November 14, 2019. TECHNIQUE: Helical axial images of the cervical spine were obtained without IV contrast. Sagittal and coronal reconstructions were viewed. Automated exposure control was utilized for the study. A dose lowering technique was utilized adhering to the principles of ALARA. FINDINGS: Small amount of suspected acute subarachnoid hemorrhage overlying the right cerebellar hemisphere is better depicted on the head CT. Alignment of the cervical spine is anatomic. Vertebral body heights are maintained. No acute cervical spine fracture or subluxation is present. There is no prevertebral edema. Facet joints are intact. Moderate multilevel degenerative changes within the cervical spine are present. IMPRESSION: 1. No acute cervical spine fracture or subluxation. 2. Small amount of suspected acute subarachnoid hemorrhage overlying the right cerebellar hemisphere, better depicted on the head CT. ACT 112: Negative or not required by law. Electronically signed by: Rusty Duenas M.D. 05/05/2022 1:07 PM Hand X-Ray 05/05/22 11:21 XR wrist LT min 3V routine, XR hand LT min 3V routine CLINICAL HISTORY: Fall TECHNIQUE: 4 views of the left wrist 3 views of left hand were obtained. Comparison: None available at the time of this dictation. FINDINGS: There is a slightly impacted fracture of the radial metaphysis. Degenerative changes are seen most prominently in the first carpometacarpal joint and distal interphalangeal joints. Soft tissue swelling is seen about the wrist. IMPRESSION: Non-displaced fracture of the distal radial metaphysis without evidence of intra-articular extension. Degenerative changes compatible with osteoarthritis noted. ACT 112: Negative or not required by law. Electronically signed by: Ralph Bonner M.D. 05/05/2022 12:06 PM Wrist X-Ray 05/05/22 11:21 XR wrist LT min 3V routine, XR hand LT min 3V routine CLINICAL HISTORY: Fall TECHNIQUE: 4 views of the left wrist 3 views of left hand were obtained. Comparison: None available at the time of this dictation. FINDINGS: There is a slightly impacted fracture of the radial metaphysis. Degenerative changes are seen most prominently in the first carpometacarpal joint and distal interphalangeal joints. Soft tissue swelling is seen about the wrist. IMPRESSION: Placed fracture of the distal radial metaphysis without evidence of intra- articular extension. Degenerative changes compatible with osteoarthritis noted in the first carpometacarpal joint and distal interphalangeal joints. ACT 112: Negative or not required by law. Electronically signed by: Ralph Bonner M.D. 05/05/2022 12:[address] 05/06/22 07:00 CT OF THE HEAD WITHOUT CONTRAST CLINICAL HISTORY: f/u SAH for stability COMPARISON STUDY: Head CT May 05, 2022. CT DOSE: 626.55 mGy.cm TECHNIQUE: Helical axial images of the head were obtained without IV contrast. Automated exposure control was utilized for the study. A dose lowering technique was utilized adhering to the principles of ALARA. FINDINGS: A few foci of trace acute subarachnoid hemorrhage are noted, including foci within the right aspect of the quadrigeminal plate cistern and overlying the right cerebellar hemisphere. There is a possible additional focus overlying the right occipital lobe. There has been no significant change since prior exam. Ventricular system is normal. Basal cisterns are patent. There are no findings to suggest acute dural sinus thrombosis or acute territorial infarct. There is no acute calvarial fracture. IMPRESSION: No significant change in a few foci of trace acute subarachnoid hemorrhage. ACT 112: Negative or not required by law. Electronically signed by: Rusty Duenas M.D. 05/06/2022 7:15 AM
--- NOTE | 2022-05-06 12:47 | Hospitalist Progress Note ---
Date of Service May 06, 2022 Assessment & Plan (1) Recurrent falls: Plan: 87 y/o female with a complicated PMH including progressive primary aphasia, prior CVA, prior SAH, 4th nerve palsy, ASCVD, HTN, dyslipidemia, and hypothyroidism who [facility] with resultant [facility] pain. Work-up in the ED revealed small foci of acute SAH and distal left radius fracture so pt referred for admission. Discussed with pt/family possible neurosurgical evaluation for the SAH but they prefer to manage conservatively - pt's POLST completed in 2020 with pt's choice being limited interventions with a goal on quality of life and comfort. - Admit to med surg - requested family be able to stay with patient overnight due to her significant aphasia (family able to help pt to communicate her needs) - PT/OT consults - consider higher level of care such as SNF at discharge, even if temporary. Pt has been resistant to this previously - Fall precautions, CM to assist w/ DC plan. (2) Subarachnoid hemorrhage: Plan: Pt/family prefer to manage conservatively - repeat CT head in AM is stable. (3) Distal radius fracture, left: Plan: - Ortho evaled, RICE/cock-up wrist splint/ pt ot / Ortho f/u in 2 weeks and left wrist XR. - Pt reports pain under control (4) Primary progressive aphasia: (5) ASCVD (arteriosclerotic cardiovascular disease): (6) Hypothyroid: (7) Dyslipidemia: (8) Essential hypertension: Plan Consulted palliative care to assist with goals of care discussion and help identify best discharge plan. Pt has declined speech therapy but on appropriate diet while admitted, recommend aspiration precautions. Await PT/OT evals to help determine appropriate level of care at discharge. Was noted to be aspirating in hospital-both pt and her dtr declined speech eval. Acute UTI: U Cx positive for GNB, rocephin 05/06. f/u final result. Code Status; DNR/DNI DVT Prophylaxis: SCDs due to SAH Admission and Anticipated Discharge Date Admission Date: May 05, 2022 Subjective Patient seen and examined at bedside as a follow-up of recurrent falls, distal radius fracture x left. Patient was lying in bed, on room air, NAD, alert and oriented, patient's daughter at bedside, had a good appetite in the morning, reports pain at left wrist under control and reports the pain is on the day when she is moving her left hand, denies headache or dizziness or chest pain or belly pain or other review of symptoms. Review of Systems Review of Systems: Negative otherwise mentioned in HPI. Physical Exam Physical Exam: GENERAL: Alert and oriented x3. NAD, on RA. slow garbled speech HEENT: No pallor, no icterus. Pupils equal, round and reactive to light. Oral mucosa moist. NECK: No JVD, no neck masses. HEART: S1 and S2 heard. Regular rate and rhythm. No murmur, no gallop. RESPIRATORY SYSTEM: Normal AP diameter. No accessory muscle use. No wheezing, no crackles. ABDOMEN: Soft, bowel sounds present, nontender, no distention. CENTRAL NERVOUS SYSTEM: No facial droop. aphasia. Obeys simple commands. Moves extremities. EXTREMITIES: No edema, no erythema seen. Left wrist tender/swollen. Fall exam: -ve pelvic compression test, bruise noted left buddhism/left shoulder/left knee. Left wrist swollen/tender rom. Improving exam Results & Data Results & Data ([facility]) Vital Signs (Past 12 Hours) Vital Signs Temp Pulse Resp BP Pulse Ox O2 Del Method 05/06/22 07:40 36.3 C L 57 L 18 130/76 95 Room Air
[2022-05-06] MEDS: cefTRIAXone SODIUM 1,000 MG in DEXTROSE 5% AD-VAN 50 ML IV SCH (14:29)
--- NOTE | 2022-05-06 14:51 | Procedure Note ---
Procedure Note Date of Service May 06, 2022 Note I was asked to place a wrist cock up brace on the left wrist. Skin was assessed, neg for any open areas. resolving ecchymosis over the digits and distal wrist. Min edema over the distal wrist. Palpable tenderness over the distal radial aspect of the left wrist. Able to flex/extend digits, wrist is limited as expected w/ flexion and extension. Able to flex and extend elbow w/o c/o pain. Pain w/ supination. Radial pulse is 3. Capillary refill is < 2 seconds. Applied tubi learning development specialist and a wrist cock up splint. Patient was stated " yes" when asked if this felt comfortable. Elevated the LUE on two pillows and requested ice to be applied over the wrist brace as needed. Nursing was getting this. Two of her daughters were present during the application of the brace. Advised on keeping the brace in place if needed may remove to groom if needed and reapply. Advised not to push/pull or lift with the LUE. She will keep her f/u appt in our office in 2 weeks w/ repeat imaging. Pt's daughters and pt verbalized understanding Coding
[2022-05-06] MEDS ORDERED: MELATONIN 3 MG TAB PO PRN (19:28)
[2022-05-07] MEDS: LEVOTHYROXINE SODIUM 88 MCG TABLET PO SCH (06:31)
[2022-05-07 08:03] LABS: Hematocrit (blood only) 36.1 % (37.0-47.0); Hemoglobin 11.7 g/dl (12.0-16.0); Mean Corpuscular Hemoglobin 28.6 pg (25.0-34.0); Mean Corpuscular Hgb Conc 32.4 g/dL (32.0-36.0); Mean Corpuscular Volume 88.3 fL (80.0-100.0); Mean Platelet Volume 9.6 fL (9.4-12.4); Platelet Count 225 K/uL (130-400); RDW Coefficient of Variation 12.5 % (11.5-14.5); RDW Standard Deviation 40.6 fL (36.4-46.3); Red Blood Count 4.09 M/uL (4.20-5.40); White Blood Count 8.35 K/ul (4.8-10.8)
[2022-05-07] MEDS: METOPROLOL SUCC 25MG EXT REL TAB PO SCH ×2 (08:27→21:37)
[2022-05-07 08:31] LABS: Calcium 9.4 mg/dl (8.5-10.1); Creatinine Clr Calc Pharmacy 46.6 ml/min; Est GFR (African American) 90.1 ml/min; Est GFR (Non-African American) 77.7 ml/min; Magnesium 2.1 mg/dl (1.7-2.4); Phosphorus 3.5 mg/dl (2.5-4.9); Potassium 3.9 mmol/L (3.5-5.1)
--- NOTE | 2022-05-07 10:12 | Orthopedic Progress Note ---
Date of Service May 07, 2022 Assessment & Plan (1) Distal radius fracture, left: Plan Continue the cock up wrist brace. Encouraged finger range of motion and hand range of motion. Avoid any heavy pushing pulling or lifting or any weight through that left hand. Continue use of the platform walker. I did explain to him that this does take some practice. Apparently she is doing well walking straight with PT and OT but any type of turning is a little uncomfortable. Is hard for her to also not remember to put any weight through the left wrist. Ice and elevation of the left hand to prevent swelling. Continue PT and OT. Follow-up with Dr. Cedillo in approximately 2 weeks as scheduled. Call [phone] with any questions or concerns or need to reschedule appointment. Explained to them that she is not much better assistive device than a platform walker and her current situation with her distal radius fracture. They could discuss this further with PT or OT to see if there is any recommendations from them on what else to use. She does need to use an assistive device to prevent further falling. Continue care per primary service. Case management for disposition needs. Okay from orthopedic standpoint for discharge when medically stable and disposition arrangements have been made. Admission and Anticipated Discharge Date Admission Date: May 05, 2022 Subjective Patient sitting up feeding herself breakfast today. Her daughters are at her bedside. They are very concerned with her continued falling prior to her admission. They state that she is struggling to use the platform walker. It is hard for her to turn with it and sit down with her arm still attached. Multiple commands in a row are hard for her to follow. They are wondering if there is anything different that they could use for ambulation. She is tolerating the brace that was applied yesterday. She has been moving her fingers. They have been keeping it elevated. They also pulled me outside of the room to discuss placement. [facility] apparently [facility] [place] [facility] and has had multiple falls there. She has difficulty or does not want to use her walker while she is there. They state that she does not use the walker and her room. She does hold onto furniture. There is been some discussion about detention facility or hospice care. They wish that I would talk to the porter sample case to sort this out and expedite things. I advised them to be patient and a lot of times were waiting for everything to fall into place with the insurance company, different facilities, bed availability and hospice care. They understand and appreciate everyone's efforts. Physical Exam Musculoskeletal: Left hand is held across patient's abdomen. She is currently eating breakfast with her right hand and the assistance of her daughter. The brace is in place a ppropriately. It is well-padded. No significant edema of her fingers. Full active ROM there are motion of her fingers. Capillary refill is brisk. Results & Data ([facility]) Vital Signs (Past 12 Hours) Vital Signs Temp Pulse Pulse Resp BP BP Pulse Ox 05/07/22 08:20 36.7 C 66 16 130/80 94 05/07/22 07:17 36.4 C L 63 18 147/83 H 95 05/07/22 01:07 36.6 C 92 H 16 114/69 93 O2 Del Method 05/07/22 08:20 Room Air 05/07/22 07:17 Room Air 05/07/22 01:07 Room Air
[2022-05-07] MEDS: ACETAMINOPHEN 325 MG TAB PO PRN (11:13)
[2022-05-07] MEDS: cefTRIAXone SODIUM 1,000 MG in DEXTROSE 5% AD-VAN 50 ML IV SCH (13:30)
--- NOTE | 2022-05-07 15:17 | Hospitalist Progress Note ---
Date of Service May 07, 2022 Assessment & Plan (1) Recurrent falls: Plan: 87 y/o female with a complicated PMH including progressive primary aphasia, prior CVA, prior SAH, 4th nerve palsy, ASCVD, HTN, dyslipidemia, and hypothyroidism who presented to the ED 05/06 from [facility] after a fall with resultant wrist pain. Work-up in the ED revealed small foci of acute SAH and distal left radius fracture so pt referred for admission. Discussed with pt/family possible neurosurgical evaluation for the SAH but they prefer to manage conservatively - pt's POLST completed in 2020 with pt's choice being limited interventions with a goal on quality of life and comfort. - Admit to med surg - requested family be able to stay with patient overnight due to her significant aphasia (family able to help pt to communicate her needs) - PT/OT consults - consider higher level of care such as SNF at discharge, even if temporary. Pt has been resistant to this previously - Fall precautions, CM to assist w/ DC plan. (2) Subarachnoid hemorrhage: Plan: Pt/family prefer to manage conservatively - repeat CT head in AM is stable. (3) Distal radius fracture, left: Plan: - Ortho evaled, RICE/cock-up wrist splint/ pt ot / Ortho f/u in 2 weeks and left wrist XR. - Pt reports pain under control (4) Primary progressive aphasia: (5) ASCVD (arteriosclerotic cardiovascular disease): (6) Hypothyroid: (7) Dyslipidemia: (8) Essential hypertension: Plan Consulted palliative care to assist with goals of care discussion and help identify best discharge plan. Pt has declined speech therapy but on appropriate diet while admitted, recommend aspiration precautions. Await PT/OT evals to help determine appropriate level of care at discharge. Was noted to be aspirating in hospital-both pt and her dtr declined speech eval. Appreciate Palliative eval. Acute UTI: U Cx positive for GNB, rocephin 05/06. f/u final result. Code Status; DNR/DNI DVT Prophylaxis: SCDs due to SAH Dispo: likely skip, to rehab per cm update. Admission and Anticipated Discharge Date Admission Date: May 05, 2022 Subjective Patient seen and examined at bedside as a follow-up of recurrent falls, distal radius fracture x left. Patient was lying in bed, on room air, NAD, alert and oriented, patient's daughter at bedside, had a good appetite in the morning, reports pain at left wrist under control and has her left hand in brace, denies headache or dizziness or chest pain or belly pain or other review of symptoms. Physical Exam Physical Exam: GENERAL: Alert and oriented x3. NAD, on RA. slow garbled speech HEENT: No pallor, no icterus. Pupils equal, round and reactive to light. Oral mucosa moist. NECK: No JVD, no neck masses. HEART: S1 and S2 heard. Regular rate and rhythm. No murmur, no gallop. RESPIRATORY SYSTEM: Normal AP diameter. No accessory muscle use. No wheezing, no crackles. ABDOMEN: Soft, bowel sounds present, nontender, no distention. CENTRAL NERVOUS SYSTEM: No facial droop. aphasia. Obeys simple commands. Moves extremities. EXTREMITIES: No edema, no erythema seen. Left wrist tender/swollen. Left wrist in brace. Distal neurovascular status WNL. Results & Data Results & Data ([facility]) Vital Signs (Past 12 Hours) Vital Signs Temp Pulse Pulse Resp BP BP Pulse Ox 05/07/22 08:20 36.7 C 66 16 130/80 94 05/07/22 07:17 36.4 C L 63 18 147/83 H 95 O2 Del Method 05/07/22 08:20 Room Air 05/07/22 07:17 Room Air
[2022-05-08] MEDS: LEVOTHYROXINE SODIUM 88 MCG TABLET PO SCH (05:57)
[2022-05-08] MEDS: ACETAMINOPHEN 325 MG TAB PO PRN (07:23)
[2022-05-08] MEDS: METOPROLOL SUCC 25MG EXT REL TAB PO SCH (08:34)
[2022-05-08] MEDS: cefTRIAXone SODIUM 1,000 MG in DEXTROSE 5% AD-VAN 50 ML IV SCH (11:37)
--- NOTE | 2022-05-08 11:37 | Discharge Summary ---
Date of Service May 08, 2022 Admission HPI Per Admitting Provider This is an 87 y/o female with a PMH of prior renal cell carcinoma, ASCVD, primary progressive aphasia, prior ovarian cancer, HTN, dyslipidemia, hypothyroid, migraines, OA, prior lacunar infarct in 2016, fall with resultant SAH in 2019 (no surgical intervention required), fall in 2020 with resultant 4th nerve palsy and chronic diplopia, and hypothyroidism who presented from [facility] today after another fall. History obtained from pt, her daughters at the bedside, and extensive review of her outpatient records. Pt has been at [facility] since shortly after her fall in 2020. She is supposed to be using a walker to help with ambulation but daughters report that she often does not use this, which has resulted in multiple falls. She follows with Dr. Lucero Agrawal for neurology, specifically the PPA. Her symptoms have been progressive. Pt also has ongoing issues with dysphagia - she did undergo speech therapy for a time but did not find it helpful so has since refused even with pr ogressive symptoms and possible aspiration seen on imaging. Her daughters think that she is likely aspirating - may have coughing or choking episodes with meals. She does seem to do better with a mechanical soft/all food in bite size pieces type of diet. Appetite is good. Pt did see palliative care in Nov 2020 and POL completed (copy on chart) - pt requests limited interventions with a focus on quality and comfort. It is unclear how compliant she has been with all of the prescribed medications but she is consistently taking her metoprolol and levothyroxine from what I can tell. Today's fall resulted in pt landing on her left side, specifically left hand. Main complaint of pain is in the left wrist, specifically with movement. Daughters note some abrasions on her left knee and elbow as well. Pt does not recall if she hit her head but does c/o headache when I saw her in the ED. Admission Exam Per Admitting Provider Constitutional: + frail appearing; no acute distress Eyes: wearing glasses with patch over right eye - when removed, pupils are equal and reactive Neck: trachea midline Respiratory: no respiratory distress and no labored breathing Auscultation: lungs clear to auscultation bilaterally; no rales, no rhonchi and no wheezes Cardiovascular: Rate/Rhythm: regular rate and regular rhythm Vessels: dorsalis pedis pulses present and radial pulses present Extremities: no pedal edema Gastrointestinal (Abdomen): Inspection/Auscultation: normal bowel sounds; abdomen not distended Percussion/Palpation: abdomen soft Musculoskeletal: left wrist with some ecchymosis, extends to hand/fingers, but minimal swelling - able to clinical study manager but some pain with this movement, pain with supination and flexion Skin: small abrasions left elbow and left knee Neurologic: moves all extremities and awake Speech / Cognition: + expressive aphasia Principal Diagnosis Recurrent falls Subarachnoid hemorrhage Left distal radius fracture Acute UTI Discharge Exam GENERAL: Alert and oriented x3. NAD, on RA. slow garbled speech HEENT: No pallor, no icterus. Pupils equal, round and reactive to light. Oral mucosa moist. NECK: No JVD, no neck masses. HEART: S1 and S2 heard. Regular rate and rhythm. No murmur, no gallop. RESPIRATORY SYSTEM: Normal AP diameter. No accessory muscle use. No wheezing, no crackles. ABDOMEN: Soft, bowel sounds present, nontender, no distention. CENTRAL NERVOUS SYSTEM: No facial droop. aphasia. Obeys simple commands. Moves extremities. EXTREMITIES: No edema, no erythema seen. Left wrist tender/swollen. Left wrist in brace. Distal neurovascular status WNL. Discharge Data Allergies Allergy/AdvReac Type Severity Reaction Status Date / Time BROWN Inhibitors Allergy Unknown ON [facility] 05/05/22 15:36 [place] [facility] Consultations 05/05/22 15:03 ED Decision to Admit Stat 05/05/22 20:17 Consult Orthopedic Surgery Routine Consult Palliative Care Routine Ordered Studies 05/05/22 11:21 CT cervical spine wo con Stat CT head/brain wo con Stat 05/06/22 07:00 CT head/brain wo con Routine Hospital Course (1) Recurrent falls: 87 y/o female with a complicated PMH including progressive primary aphasia, prior CVA, prior SAH, 4th nerve palsy, ASCVD, HTN, dyslipidemia, and hypothyroi dism who presented to the ED 05/06 from [facility] after a fall with resultant wrist pain. Work-up in the ED revealed small foci of acute SAH and distal left radius fracture so pt referred for admission. Discussed with pt/family possible neurosurgical evaluation for the SAH but they prefer to manage conservatively - pt's POLST completed in 2020 with pt's choice being limited interventions with a goal on quality of life and comfort. - Admitted to med surg - requested family be able to stay with patient overnight due to her significant aphasia (family able to help pt to communicate her needs) - PT/OT consults - consider higher level of care such as SNF at discharge, even if temporary. Pt has been resistant to this previously ------> now the plan is to rehab then back to [facility]. - Fall precautions. (2) Subarachnoid hemorrhage: Pt/family prefer to manage conservatively - repeat CT head was stable. (3) Distal radius fracture, left: - Ortho evaled, RICE/cock-up wrist splint/ pt ot / Ortho f/u in 2 weeks and left wrist XR. - Pt reports pain under control (4) Primary progressive aphasia: (5) ASCVD (arteriosclerotic cardiovascular disease): (6) Hypothyroid: (7) Dyslipidemia: (8) Essential hypertension: Plan Consulted palliative care to assist with goals of care discussion and help identify best discharge plan. Pt has declined speech therapy but on appropriate diet while admitted, recommend aspiration precautions. Await PT/OT evals to help determine appropriate level of care at discharge. Was noted to be aspirating in hospital-both pt and her dtr declined speech eval. Appreciate Palliative eval. Acute UTI: U Cx positive for GNB, rocephin 05/06. Pt to complete po atb course on dc. Code Status; DNR/DNI DVT Prophylaxis: SCDs due to SAH Patient being discharged to rehab with following instruction at the point of discharge: Follow-up with your primary care physician within a week time and likely you will need labs CBC/CMP. Follow-up with orthopedics in 2 weeks time and you will likely get wrist x-ray. Complete the course of antibiotics for UTI. You can use [id number] Tylenol for your pain. Take your medications as prescribed. Home Health Attestation I certify that this patient is under my care and that I, or a physicians showroom sales assistant working with me, had a face to-face encounter that meets the home health [id number]-[id number] encounter requirements with this patient. The encounter with the patient was in whole, or in part, for the following medical condition, which is the primary reason for home health care (list medical condition): I certify that, based on my findings, the following services are medically necessary home health services: My clinical findings support the need for the above services because: Further, I certify that my clinical findings support that this patient is homebound (i.e. absences from home require considerable and taxing effort and are for medical reasons or mu-ism services or infrequently or of short duration when for other reasons) because: Certification for Home Health Services: Based on the above findings, I certify that this patient is confined to the home and needs intermittent retirement care, physical therapy and/or speech therapy or continues to need occupational therapy. The patient is under my care, and I have initiated the establishment of the plan of care. This patient will be followed by a physician who will periodically review the plan of care. Total Time Total Time Spent Total Time Spent (In Minutes): 45 Discharge Plan Discharge Items Patient Disposition: [facility] Reason For Visit: SAH, DISTAL RADIUS FX Discharge Diagnosis: Recurrent falls Subarachnoid hemorrhage Left distal radius fracture Acute UTI Activity: As commented below Non-emergency contact: Primary Care Provider Call non-emergency contact if: you have any medication questions, your symptoms worsen, your pain is worsening and your temperature is above 101 Follow-up/Referrals: Wayne Cedillo MD [Physician] - 05/22/22 11:00 am Yi Lopez [Primary Care Provider] - Diet: Regular Diet Texture: Dental soft (bite-sized) Addtl Attending Provider Instructions: Follow-up with your primary care physician within a week time and likely you will need labs CBC/CMP. Follow-up with orthopedics in 2 weeks time and you will likely get wrist x-ray. Complete the course of antibiotics for UTI. You can use [id number] Tylenol for your pain. Take your medications as prescribed. Addtl Laundry Bag Punch Operator Provider Instructions: Orthopedic instructions: - Wrist brace on left wrist at all times, except when bathing with assistance. May remove to bathe and apply lotion to skin as needed. - No weight thru your left wrist. You may bear weight thru your forearm with platform walker. - ice to left wrist as needed for pain/swelling - Elevate left wrist above your heart to relieve pain/swelling. - Allowed for finger range of motion as tolerated left hand - follow up with Dr. Cedillo in approximately 2 weeks as scheduled. Pending Studies at Discharge: No Stand-Alone Forms: My [facility] Skilled Items Patient informed of condition?: Yes DNR: Yes Discharge Level of Care: Skilled Communicable Disease: No Discharge Prognosis: Stable Lines: None Urinary Catheter: No Medications and DC Order Prescriptions: New cefdinir 300 mg capsule 300 mg PO BID 3 Days Qty: 6 0RF Continued levothyroxine 88 mcg tablet 88 mcg PO DAILYBB Rx Instructions: MAY CRUSH aspirin [Aspirin Low-Strength] 81 mg Tablet,Chewable 81 mg PO DAILY acetaminophen [Tylenol] 325 mg Tablet 650 mg PO Q4H PRN (Reason: PAIN/FEVER >100.) melatonin 3 mg Tablet 3 mg PO HS PRN (Reason: Insomnia) metoprolol succinate 25 mg tablet extended release 24 hr 37.5 mg PO BID Rx Instructions: DO NOT CRUSH Systane Balance 0.6 % Drops 2 drp OPHTHALMIC (EYE) TID Children's Multivitamin Tablet,Chewable 1 tab PO DAILY Discharge Orders: Discharge Order (Routine); Ordered 05/08/22 Ordered By: Suresh Fisher Admission Data Admit Date/Time: 05/05/22 15:01 Attending Provider: Suresh Fisher Admit Provider: Suresh Fisher Primary Care Provider: Yi Lopez Other Providers: Suresh Fisher ; [facility] ; [facility] ; Wayne Cedillo ; Ana Lemus
--- NOTE | 2022-05-08 16:20 | Orthopedic Progress Note ---
Date of Service May 08, 2022 Assessment & Plan (1) Distal radius fracture, left: Plan: Patient and her daughter were educated regarding today's findings. Conservative care measures were discussed. She was shown how to carefully take the splint on and off. It is fitting well. She should avoid putting any weight through the wrist to avoid potential displacement. Importance of using the walker with the platform attachment was discussed. Ice the wrist intermittently as needed for any discomfort. Elevate to reduce swelling. Leave the splint in place for protection and support. She may use Tylenol for breakthrough pain. Follow-up in the office in 10 to 14 days for new films of the wrist. Call with any other concerns. Admission and Anticipated Discharge Date Admission Date: May 05, 2022 Subjective This 87-year-old female patient is seen today in her room. Her daughter is at bedside. The patient has no current complaints. Her wrist splint is in place on the left wrist. She is scheduled to leave for [employer] today around 1230. No other complaints. She was able to use a walker with a platform stand. Physical Exam Physical Exam: General: Well-developed, elderly female, in no acute distress. Laying in bed. Visiting with her daughter. Skin: Warm and dry with good turgor. No skin breakdown. Mild edema present over the dorsum of the left wrist. No ecchymosis yet. No skin tears. Musculoskeletal: Patient has intact motor function of her digits. Wrist range of motion was not attempted secondary to the known fracture. She does have intact supination and pronation with some mild discomfort. No pain with palpation over the rest of the forearm, elbow, or humerus. Neurologic: Gross sensation is intact across each of the digits on the left hand by soft touch. Peripheral pulses are 2+. Capillary refill is equal for each of the digits. Results & Data ([facility]) Vital Signs (Past 12 Hours) Vital Signs Temp Pulse Pulse Pulse Resp BP BP 05/08/22 11:47 36.8 C 64 61 66 17 130/80 128/76 05/08/22 07:58 36.8 C 61 17 128/76 Pulse Ox O2 Del Method 05/08/22 11:47 96 05/08/22 07:58 96 Room Air
--- NOTE | 2022-05-13 10:48 | Coding Query ---
CODING QUERY To promote full compliance with coding requirements relating to patient care, provider participation is requested in all cases of lead cargo mover uncertainty. Please assist us with the question(s) below: Coding Question(s): Please specify below, in your clinical opinion, the diagnosis most responsible for occasioning the inpatient admission: ( ) Recurrent falls ( x) Left distal radius fracture ( ) Subarachnoid hemorrhage ( ) Other: Please Specify Physician's Response(s): Thank you Yesi Dee Principal Diagnosis: "that condition established after study, to be chiefly responsible for occasioning the admission of the patient to the hospital for care." Co-Existing Principal Diagnosis: "when two or more diagnoses equally meet the criteria for principal diagnosis as determined by the circumstances of admission, diagnostic work up, and/or therapy provided, and the Alphabetic Index, Tabular List, or another coding guideline does not provide sequencing direction, any one of the diagnoses may be sequenced first." "When the physician has documented what appears to be a current diagnosis in the body of the record, but has not included the diagnosis in the final diagnostic statement, the physician should be asked whether the diagnosis should be added." (Source Coding [facility] 2 QTR90. p3-4) [place]
== END 2022-05-08 12:39 | DRG 562 ==
LOC: ED 10:28 → 3N 15:01